=== PATIENT | female | born 1970 | race Caucasian/White ===

== ENCOUNTER 2018-09-23 16:57 | Emergency (ER) | payer OTHER ==
[~2018-09-23] VITALS: Ht 182.9 cm; Wt 174.6 kg
[~2018-09-23 16:57] MED LIST: APAP500 PO; ASPIRIN EC81 M1 PO; ASPIRIN325 PO; BUPROPION XL150 MG PO; CELEBREX 200 M200 MG PO; CLARITIN10 M2 PO; COMPOUND; NAPROSYN500 MG; NORCO 7.5-3251 EACH PO; XARELTO10 M1 PO
[2018-09-23] MEDS ORDERED: ENOXAPARIN120 MG/0.1 SUBQ (17:09)
[2018-09-23] MEDS ORDERED: ZYRTEC10 M4 PO (17:09)
[2018-09-23] MEDS ORDERED: ZESTORETIC 20-1 EAC2 PO (17:09)
[2018-09-23] MEDS ORDERED: CYMBALTA20 MG PO (17:09)
[2018-09-23] MEDS ORDERED: COUMADIN 5 MG TA5 M1 PO (17:10)
[2018-09-23] MEDS ORDERED: VENTOLIN HFA 1818 GM INH (17:11)
[2018-09-23] MEDS ORDERED: IMITREX 25 MG T25 M1 PO (17:11)
[2018-09-23 17:55] LABS: HEMATOCRIT 43.3 % (37.0-47.0); HEMOGLOBIN 14.3 gm/dL (12.0-15.0); MCH 29.1 pg (26.0-34.0); MCHC 33.1 g/dL (28.0-37.0); MCV 88.1 fL (80.0-100.0); MPV 8.6 fl. (7.2-11.1); NUCLEATED RBCS 0 /100WBC; PLATELET COUNT* 234 thou/uL (150-400); RBC 4.92 mil/uL (4.20-5.00); RDW-CV 14.9 % (10.5-14.5); WBC 9.4 thou/uL (4.0-11.0)
[2018-09-23 18:00] LABS: URINE BILIRUBIN NEGATIVE (Negative); URINE BLOOD NEGATIVE (Negative); URINE CLARITY CLEAR; URINE COLOR YELLOW; URINE GLUCOSE-RANDOM NEGATIVE (Negative); URINE KETONES NEGATIVE (Negative); URINE LEUKOCYTES-REFLEX NEGATIVE (Negative); URINE NITRITE-REFLEX NEGATIVE (Negative); URINE PROTEIN NEGATIVE (Negative); URINE UROBILINOGEN 0.2 E.U./dl (0.2-1.0)
[2018-09-23 18:03] LABS: ANION GAP 7 mmol/L (7-16); BUN 19 mg/dL (7-18); CALCIUM 8.5 mg/dL (8.5-10.1); CHLORIDE 101 mmol/L (98-107); CO2 28 mmol/L (21-32); CREATININE 0.9 mg/dL (0.6-1.3); GLUCOSE 111 mg/dL (70-99); INR 2.2; POTASSIUM 3.7 mmol/L (3.5-5.1); PROTIME 22.3 Seconds (9.20-11.50); SODIUM 136 mmol/L (136-145)
[2018-09-23 18:10] LABS: ALKALINE PHOSPHATASE 101 U/L (46-116); SGOT 46 U/L (15-37); SGPT 74 U/L (30-65); TOTAL BILIRUBIN 0.2 mg/dL (<0.1-1.0); TOTAL PROTEIN 6.8 g/dL (6.4-8.2); TROPONIN-I LEVEL <0.06 ng/mL (<0.06)
[2018-09-23 18:22] LABS: ABSOLUTE EOSINOPHILS 0.1 thou/uL (0.0-0.7); ABSOLUTE LYMPHOCYTES 1.3 thou/uL (0.8-5.3); ABSOLUTE MONOCYTES 0.5 thou/uL (0.0-1.2); ABSOLUTE NEUTROPHILS 7.5 thou/uL (1.6-8.1); ATYPICAL LYMPHS 2 %
[2018-09-23 18:23] LABS: LARGE PLATELETS RARE; PLATELET ESTIMATE ADEQUATE
[2018-09-23 18:25] LABS: ANISOCYTOSIS Occasional
[2018-09-23 18:48] VITALS: BP 135/75
--- NOTE | 2018-09-25 12:32 | EKG ---
[place] [address] ELECTROCARDIOGRAM REPORT Name: MIGDALIA HAMLIN Matilde Room: [facility]#: [id number] Admission: 09/23/18 Attend Phys: Discharge: 09/23/18 Date of : 74 Report #: [id number] THIS REPORT FOR: //name// [facility] ED Test Date: 2018-09-23 Test Time: 17:31:46 Pat Name: MIGDALIA HAMLIN Department: Room: Gender: F Foreclosure Home Inspector: Cherry MERCER : 1970 Requested By: Shwetha Mcclure Order Number: [id number] MD: Farhat Dodd Measurements Intervals [place] Rate: 68 P: 72 HI: 158 QRS: 44 QRSD: 90 T: 39 QT: 410 QTc: 437 Interpretive Statements Sinus rhythm Compared to ECG 10/11/2013 10:15:48 No significant changes Electronically Signed On 09-25-2018 12:32:19 SUPERVISOR [employer]UCK INSTALLATION by Farhat Dodd [email or web address] <ELECTRONICALLY SIGNED> By: Farhat Dodd MD, [facility] 09/25/18 1232 30 30 Farhat Dodd MD, FACC /EPI
== END 2018-09-23 18:49 | disposition home or self-care (01) ==
LOC: M.ERS 16:57
PROVIDERS: Nurse Practitioner Family
DX: R42 Dizziness and giddiness (principal); R55 Syncope and collapse; M25.561 Pain in right knee; F17.210 Nicotine dependence, cigarettes, uncomplicated; Z88.1 Allergy status to other antibiotic agents; Z88.6 Allergy status to analgesic agent; Z88.8 Allergy status to other drugs, medicaments and biological substances; Z90.710 Acquired absence of both cervix and uterus; Z90.49 Acquired absence of other specified parts of digestive tract

== ENCOUNTER → 2018-10-22 | Day surgery (SDC) | payer OTHER ==
[~2018-10-22] MED LIST changes: +COUMADIN 5 MG TA5 M1 PO; +CYMBALTA20 MG PO; +ENOXAPARIN120 MG/0.1 SUBQ; +IMITREX 25 MG T25 M1 PO; +NORCO 5-325 TA1 EACH PO; +VENTOLIN HFA 1818 GM INH; +ZESTORETIC 20-1 EAC2 PO; +ZYRTEC10 M4 PO
[2018-10-22 11:47] LABS: HEMATOCRIT 43.8 % (37.0-47.0); HEMOGLOBIN 14.7 gm/dL (12.0-15.0); MCH 29.5 pg (26.0-34.0); MCHC 33.6 g/dL (28.0-37.0); MCV 87.9 fL (80.0-100.0); MPV 8.4 fl. (7.2-11.1); RBC 4.99 mil/uL (4.20-5.00); RDW-CV 14.5 % (10.5-14.5); WBC 6.1 thou/uL (4.0-11.0)
[2018-10-22 12:00] LABS: INR 1.1; PROTIME 11.7 Seconds (9.20-11.50)
[2018-10-22 12:04] LABS: CALCIUM 8.7 mg/dL (8.5-10.1); CREATININE 0.9 mg/dL (0.6-1.3); POTASSIUM 3.3 mmol/L (3.5-5.1)
[2018-10-22 12:08] LABS: ALBUMIN 2.9 g/dL (3.4-5.0); TOTAL BILIRUBIN 0.6 mg/dL (<0.1-1.0); TOTAL PROTEIN 6.8 g/dL (6.4-8.2)
--- NOTE | 2018-10-29 23:20 | OP ---
[address] [address] OPERATIVE REPORT Name: YAKELINMIGDAILA M Room: [facility]#: [id number] Admission: 10/22/18 Attend Phys: Alfred Marcum II Discharge: Date of : 74 Report #: [id number] THIS REPORT FOR: //name// CC: Sherwin Mracum DATE OF SERVICE: 10/22/2018 PREOPERATIVE DIAGNOSIS: Right knee medial meniscus tear. POSTOPERATIVE DIAGNOSES: 1. Right knee medial meniscus tear. 2. Grade 3 chondromalacia, patellofemoral groove. 3. Grade 3 chondromalacia, medial femoral condyle. 4. Loose body measuring 9 mm in the joint. PROCEDURE PERFORMED: 1. Right knee arthroscopic surgery with partial medial meniscectomy. 2. Abrasion chondroplasty of the patellofemoral groove down to bleeding bone. 3. Abrasion chondroplasty, medial femoral condyle down to bleeding bone. 4. Excision loose body 9 mm from lateral portal. SURGEON: Alfred Marcum II, PROGRESS CLERK: ELVI Gee ANESTHESIA: Per operative record. ESTIMATED BLOOD LOSS: Minimal. ANTIBIOTICS: Per operative record. DRAINS: None. COMPLICATIONS: None. CONDITION: Stable to recovery room. DESCRIPTION OF PROCEDURE: The patient was taken to the operative suite and placed supine on the operating table and given appropriate anesthesia. The patient's back and lower extremity was sterilely prepped and draped in a well-padded knee arthroscopic conti. Surgery began by medial and lateral portal incisions. The arthroscope was advanced in the joint. There was shown to be a posterior horn meniscus tear, which was debrided back to a stable margin utilizing baskets and shaver. There was found to be grade 3 chondromalacia of the patellofemoral groove with loose fibrillated cartilage[place] [address] OPERATIVE REPORT Name: MIGDALIA HAMLIN Room: [facility]#: [id number] Admission: 10/22/18 Attend Phys: Alfred Marcum II Discharge: Date of : 74 Report #: [id number] and abrasion, chondroplasty was performed down the bleeding bone along the patellofemoral groove to remove excess cartilage and then smoothed utilizing Coblation wand in appropriate fashion. ____ medial femoral condyle also showed grade 3 chondromalacia with loose cartilage. This was debrided by utilizing shaver down to bleeding bone and then smoothed with a Coblation wand in appropriate fashion. ACL and PCL were probed and found to be intact. There was approximately 9 mm loose body, which was found in the recess of the meniscus. Utilizing an anterolateral portal, this was grasped utilizing a grasper and removed through this portal. Irrigation was then formed. The knee was drained of arthroscopic fluid, closed with 4-0 nylon in simple fashion. Dermabond and sterile dressing applied. The patient transported to recovery in stable condition. Counts were correct throughout the procedure. <ELECTRONICALLY SIGNED> By: Alfred Marcum II, 10/29/18 2320 0822 1045Alfred Marcum II, DO /nt
== END | disposition home or self-care (01) ==
LOC: M.SUR 09:35
PROVIDERS: Orthopaedic Surgery
DX: S83.241A Other tear of medial meniscus, current injury, right knee, initial encounter (principal); M94.261 Chondromalacia, right knee; Z79.01 Long term (current) use of anticoagulants; Z79.899 Other long term (current) drug therapy; Z79.891 Long term (current) use of opiate analgesic; X58.XXXA Exposure to other specified factors, initial encounter; Y93.89 Activity, other specified; Y92.89 Other specified places as the place of occurrence of the external cause; Y99.8 Other external cause status

== ENCOUNTER 2019-08-02 16:35 | Emergency (ER) | payer OTHER ==
[~2019-08-02] VITALS: Ht 182.9 cm; Wt 170.1 kg
[2019-08-02] MEDS ORDERED: CELEBREX 200 M200 M1 PO (16:51)
[2019-08-02 19:12] LABS: CALCIUM 8.5 mg/dL (8.5-10.1); CREATININE 0.9 mg/dL (0.6-1.3); POTASSIUM 3.5 mmol/L (3.5-5.1)
[2019-08-02 19:12] LABS: ABSOLUTE BASOPHILS 0.2 thou/uL (0.0-0.2); ABSOLUTE EOSINOPHILS 0.3 thou/uL (0.0-0.7); ABSOLUTE LYMPHOCYTES 2.2 thou/uL (0.8-5.3); ABSOLUTE MONOCYTES 0.6 thou/uL (0.0-1.2); ABSOLUTE NEUTROPHILS 8.4 thou/uL (1.6-8.1); BASOPHILS 1.7 %; EOSINOPHILS 2.4 %; HEMATOCRIT 42.5 % (37.0-47.0); HEMOGLOBIN 14.3 gm/dL (12.0-15.0); LYMPHOCYTES 18.8 %; MCH 28.8 pg (26.0-34.0); MCHC 33.6 g/dL (28.0-37.0); MCV 85.8 fL (80.0-100.0); MONOCYTES 5.4 %; MPV 8.5 fl. (7.2-11.1); NUCLEATED RBCS 0 /100WBC; PLATELET COUNT* 238 thou/uL (150-400); POLYS 71.7 %; RBC 4.95 mil/uL (4.20-5.00); RDW-CV 15.1 % (10.5-14.5); WBC 11.7 thou/uL (4.0-11.0)
[2019-08-02 19:17] LABS: ALBUMIN 3.1 g/dL (3.4-5.0); TOTAL BILIRUBIN 0.3 mg/dL (<0.1-1.0); TOTAL PROTEIN 7.2 g/dL (6.4-8.2)
[2019-08-02 21:58] VITALS: BP 134/69
== END 2019-08-02 21:59 | disposition home or self-care (01) ==
LOC: M.ERS 16:35
PROVIDERS: Nurse Practitioner Family
DX: R19.7 Diarrhea, unspecified (principal); Z90.710 Acquired absence of both cervix and uterus; Z90.89 Acquired absence of other organs; Z90.49 Acquired absence of other specified parts of digestive tract; G47.30 Sleep apnea, unspecified; Z98.890 Other specified postprocedural states; Z96.652 Presence of left artificial knee joint; Z91.048 Other nonmedicinal substance allergy status; Z88.1 Allergy status to other antibiotic agents; Z88.5 Allergy status to narcotic agent

== ENCOUNTER 2020-11-07 01:44 | Emergency (ER) | payer OTHER ==
[~2020-11-07] VITALS: Ht 182.9 cm; Wt 178.8 kg
[~2020-11-07 01:44] MED LIST changes: +CELEBREX 200 M200 M1 PO
[2020-11-07] MEDS ORDERED: HYDROCHLOROTHIA25 M1 PO (02:10)
[2020-11-07] MEDS ORDERED: PRISTIQ50 M1 PO (02:11)
[2020-11-07 03:22] VITALS: BP 138/53
[2020-11-07 03:27] LABS: URINE BILIRUBIN NEGATIVE (Negative); URINE BLOOD 1+ (Negative); URINE CLARITY CLEAR; URINE COLOR YELLOW; URINE GLUCOSE-RANDOM NEGATIVE (Negative); URINE KETONES NEGATIVE (Negative); URINE LEUKOCYTES-REFLEX NEGATIVE (Negative); URINE NITRITE-REFLEX NEGATIVE (Negative); URINE PROTEIN TRACE (Negative); URINE SPECIFIC GRAVITY >= 1.030 (1.005-1.030); URINE UROBILINOGEN 0.2 E.U./dl (0.2-1.0)
[2020-11-07 04:12] LABS: CASTS None Seen /LPF (None Seen); SQUAMOUS 4-10 Moderate /LPF (0-3); URINE RBC 0-2 Rare /HPF (0-2); URINE WBC-REFLEX None Seen /HPF (0-5)
[2020-11-07 04:13] LABS: AMORPHOUS URATES Many /LPF (None Seen)
== END 2020-11-07 03:23 | disposition left against medical advice (07) ==
LOC: M.ERS 01:44
PROVIDERS: Personal Emergency Response Attendant
DX: M79.661 Pain in right lower leg (principal); M79.662 Pain in left lower leg; I10 Essential (primary) hypertension; Z90.49 Acquired absence of other specified parts of digestive tract; Z90.710 Acquired absence of both cervix and uterus; Z79.01 Long term (current) use of anticoagulants; Z79.899 Other long term (current) drug therapy; Z88.5 Allergy status to narcotic agent; Z88.1 Allergy status to other antibiotic agents; Z91.048 Other nonmedicinal substance allergy status

== ENCOUNTER → 2021-01-09 | Outpatient (CLI) | payer OTHER ==
[~2021-01-09] MED LIST changes: +ENOXAPARIN60 MG/0.6 SUBQ; +FAMOTIDINE 10 M10 MG PO; +HYDROCHLOROTHIA25 M1 PO; +JANTOVEN5 MG PO; +JANTOVEN7.5 MG PO; +LOVENOX SUBQ; +PRISTIQ100 MG PO; +PRISTIQ50 M1 PO; +ZOLOFT25 MG PO
[2021-01-09 10:56] LABS: HEMATOCRIT 43.5 % (37.0-47.0); MCH 28.5 pg (26.0-34.0); MCHC 32.2 g/dL (28.0-37.0); MCV 88.5 fL (80.0-100.0); MPV 8.1 fl. (7.2-11.1); NUCLEATED RBCS 0 /100WBC; PLATELET COUNT* 273 thou/uL (150-400); RBC 4.92 mil/uL (4.20-5.00); RDW-CV 15.2 % (10.5-14.5); WBC 11.9 thou/uL (4.0-11.0)
[2021-01-09 11:02] LABS: APTT 25.1 Seconds (25.0-31.3); INR 1.1; PROTIME 11.2 Seconds (9.20-11.50)
[2021-01-09 11:06] LABS: ALBUMIN 2.8 g/dL (3.4-5.0); CALCIUM 8.6 mg/dL (8.5-10.1); CREATININE 0.8 mg/dL (0.6-1.3); POTASSIUM 3.6 mmol/L (3.5-5.1); TOTAL BILIRUBIN 0.5 mg/dL (<0.1-1.0); TOTAL PROTEIN 6.9 g/dL (6.4-8.2)
[2021-01-09 11:35] LABS: ABSOLUTE EOSINOPHILS 0.2 thou/uL (0.0-0.7); ABSOLUTE LYMPHOCYTES 1.3 thou/uL (0.8-5.3); ABSOLUTE MONOCYTES 0.8 thou/uL (0.0-1.2); ABSOLUTE NEUTROPHILS 9.5 thou/uL (1.6-8.1)
[2021-01-09 11:36] LABS: ANISOCYTOSIS 1+; PLATELET ESTIMATE ADEQUATE; POIKILOCYTOSIS 1+
--- NOTE | 2021-01-09 17:49 | EKG ---
[place] [address] ELECTROCARDIOGRAM REPORT Name: YAKELINMIGDALIA Matilde Room: [facility]#: [id number] Admission: 01/09/21 Attend Phys: Irving Field Discharge: Date of : 74 Date of Service: 01/09/21 1057 Report #: [id number] THIS REPORT FOR: //name// [facility] Test Date: 2021-01-09 Test Time: 10:57:28 Pat Name: MIGDALIA HAMLIN Department: Room: Gender: Statement Request Clerk: : 1970 Requested By: Irving Field Order Number: [id number] Reading MD: Irving Westfall Measurements Intervals [place] Rate: 68 P: 73 NC: 142 QRS: 68 QRSD: 89 T: 54 QT: 398 QTc: 424 Interpretive Statements Sinus rhythm Compared to ECG 09/23/2018 17:31:46 No significant changes Electronically Signed On 01-09-2021 17:49:46 DIE MAKER BENCH STAMPING by Irving Westfall [email or web address] <ELECTRONICALLY SIGNED> By: Irving Westfall MD, [facility] 01/09/21 1749 1057 105 Irving Westfall MD, FAC /EPI
[2021-01-10 02:06] LABS: GLYCOHEMOGLOBIN (HGB A1C) 6.2 % (4.8-5.6)
== END ==
LOC: M.LAB 10:22
PROVIDERS: ATTEND Orthopaedic Surgery
DX: Z01.812 Encounter for preprocedural laboratory examination (principal); Z20.822 Contact with and (suspected) exposure to COVID-19; M17.11 Unilateral primary osteoarthritis, right knee; I49.9 Cardiac arrhythmia, unspecified

== ENCOUNTER 2021-01-19 07:54 | Inpatient (IN) | payer OTHER ==
[~2021-01-19] VITALS: Ht 182.9 cm; Wt 174.2 kg
--- NOTE | ~2021-01-19 | OP ---
[address] [address] OPERATIVE REPORT Name: MIGDALIA HAMLIN Room: [address] IN .R.#: [id number] Admission: 01/19/21 Attend Phys: Akilah Morrissey Discharge: Date of : 74 Report #: [id number] THIS REPORT FOR: cc: Sherwin Dalal Chad W. DO ~ Irving Field DO DICTATED BY: Jose Seymour DO DATE OF SERVICE: 01/19/2021 PREOPERATIVE DIAGNOSIS: Right knee end-stage degenerative joint disease. POSTOPERATIVE DIAGNOSIS: Right knee end-stage degenerative joint disease. PROCEDURE PERFORMED: Right total knee arthroplasty. SURGEON: Irving Field DO STONE CUTTER: Jose Seymour DO ANESTHESIA: 1. Spinal with sedation. 2. A preoperative adductor canal block. 3. An intraoperative intracapsular local block. TOURNIQUET TIME: 300 mmHg at 37 minutes. ESTIMATED BLOOD LOSS: 450 mL. COMPLICATIONS: None. CONDITION OF PATIENT: Stable to PACU. INTRAOPERATIVE FINDINGS: Dissection down into the subcutaneous tissues revealed no abnormalities. The tissue planes were appropriate and healthy given the patient's age and comorbidities. Capsulotomy revealed medium joint effusion with straw colored joint fluid without any signs of purulence. Bone inspection revealed normal bone hardness with gross eburnation and osteophytic lipping tricompartmentally. IMPLANTS: 1. Richard Persona cruciate retained, size-8 femur. 2. Richard Persona natural tibia, size-S. 3. Richard Persona, size 32 mm round patellar button. 4. Richard Persona vitamin E highly cross-linked size-[place] [address] OPERATIVE REPORT Name: MIGDALIA HAMLIN Room: [address] IN [facility].#: [id number] Admission: 01/19/21 Attend Phys: Akilah Morrissey Discharge: Date of : 74 Report #: [id number] INDICATIONS FOR PROCEDURE: The patient is a pleasant 50-year-old female who has been dealing with longstanding right knee pain. In the early part of December of this year, she unfortunately stepped out of a bus wrong without significant increase in her baseline knee pain. MRI and radiographic evaluation of the knee showed extensive degenerative changes tricompartmentally with [id number]-ed-glvm wear patterns. The patient had already tried conservative measures including a history of multiple arthroscopies of the knee, weight loss, activity modification, corticosteroid therapy, although failed to provide any significant relief to her knee pain. She was recommended to proceed forward with a right total knee arthroplasty. We discussed the alternatives, benefits and risks including but not limited to damage to neurovascular structures, continuation of pain, possible need for repeat surgery, future intraoperative or postoperative fracture, failure of implants, postoperative DVT, pulmonary embolism, IL and any other imponderables secondary to being taken back to the operative suite. The patient expressed understanding of the aforementioned and did wish to proceed. DESCRIPTION OF PROCEDURE: The patient was met in the preoperative area. The correct site was marked. She was taken back to the operative suite, given the benefit of spinal anesthetic, placed supine on a well-padded operative table. All bony prominences were padded. The patient was well secured. A well-padded pneumatic tourniquet was applied to the right proximal thigh. This was ultimately inflated for 37 minutes. Right lower extremity was then sterilely prepped and draped in normal standard fashion. The right lower extremity was secured into the [facility] leg conti. Surgeon-led timeout with the correct patient, side, site, procedure to be performed. Antibiotics in the form of 3 grams of Ancef being administered was agreed upon by all in participation. Right lower extremity was held in that elevated position to allow for gravity exsanguination followed by flexing at the knee and inflating the tourniquet to 300 mmHg. Standard midline incision through the skin and subcutaneous tissue were taken down. Electrocautery was used to establish hemostasis. A new knife was used to make a medial parapatellar arthrotomy. The medial and lateral subperiosteal sleeves were developed followed by releasing of the fat pad with adhesions to the undersurface of the patella. Patella was everted and brought in a semi-flexed position. The undersurface of the patella and patellar tendon was examined. The fat pad was excised as well as the anterior horn of the lateral meniscus. Knee was flexed up the remainder of the way. The medial and lateral Hohmann retractors were put in place. Femoral drill was used to establish our intramedullary canal guide for the intramedullary brad. Intramedullary brad was inserted and pinned into place. A distal femoral cut was made. With instruments removed, A-P femoral sizer was put in place and sized to be size-9. This was pinned into place. Anterior femoral cut was made. It was felt to be able to downsize safely. Size-9 was exchanged through size-8 in 4-in-1 cutting block. Size-8 anterior femoral cut was flushed with the anterior cortex of the femur. The posterior femoral cut, [place] [address] OPERATIVE REPORT Name: MIGDALIA HAMLIN Room: [address] [place] [facility]#: [id number] Admission: 01/19/21 Attend Phys: Akilah Morrissey Discharge: Date of : 74 Report #: [id number] chamfer cuts were then made. A 4-in-1 cutting block to the bony cuts were removed. Rongeur was used to clean off the bone and osteophytes about the distal femur. Extramedullary tibial guide was put into place measured to off the low side at the tibia which is the medial compartment. This was dropped an extra 2 mm and pinned. Tibial cut was made. Knee was brought into extension, felt to be too tight to allow a #10 spacer block to be inserted. The tibial cut guide was then placed back into place, dropped an extra 2 for a total of 4 mm off of our initial measurement. This was made without issue. The knee was brought into extension and the #10 spacer block fit well. There was symmetric balancing to varus and valgus stress at both the extended and flexed position. Knee was brought into a flexed position. The tibial sizer was pinned into place followed by a trial femur. All components were felt to be seated and measured appropriately. The size-10 polyethylene trial was inserted. The knee was brought into full extension and appropriate gap balancing the knee flexed and extended position. Knee was on a semi-extended position where the patella was cut from the inferior pole superiorly, drilled. The patellar button was placed and that flushed the undersurface of the patella. All the trial instruments were removed. Cement was mixed on the back table. All bony ends were thoroughly irrigated and lavaged with pulsatile irrigation. Hohmann retractors were placed medial and lateral as well as the PCL tract on the posterior aspect of the tibia. Cement was placed down to the bone surfaces for the tibia, femur, and patella. All trials were impacted into place. A size-10 polyethylene insert was used. Decompressed the knee as it was held in extension and axially loaded while the cement was allowed to harden. The patellar clamp was left on the patella the entire time. After cement was adequately hard, size-12 stem was inserted into the polyethylene trial. This was felt to have more appropriate varus and valgus balancing, and was almost 0 anterior drawer at mid flexion and stretching. Decided to use a size-12 final polyethylene insert. This was done on the back table as noted. After the tibial tray was inspected for any residual cement or debris, Richard hand groundwater monitoring technician was used to insert final polyethylene. Knee was taken through a full range of motion and felt to have continued stability to varus and valgus stress about the extended and flexed position. No concern for residual drawer at the mid flexion position of 90 degrees. Knee was thoroughly irrigated. A capsular block was administered. A layered closure with #1 Vicryl to the capsule followed by 2-0 Vicryl for subcutaneous tissue, and a running 3-0 Stratafix was done. Skin glue was applied followed by Mepilex dressing. The patient was awoken from general anesthesia and taken to postanesthesia care unit in stable condition. All sponge and needle counts were correct x 2 prior to closure. By: [id number] Field DO /richie
[2021-01-19 08:57] LABS: INR 1.1; PROTIME 11.3 Seconds (9.20-11.50)
[2021-01-19 13:22] LABS: URINE BILIRUBIN NEGATIVE (Negative); URINE BLOOD NEGATIVE (Negative); URINE CLARITY CLEAR; URINE COLOR YELLOW; URINE GLUCOSE-RANDOM NEGATIVE (Negative); URINE KETONES NEGATIVE (Negative); URINE LEUKOCYTES-REFLEX NEGATIVE (Negative); URINE NITRITE-REFLEX NEGATIVE (Negative); URINE PROTEIN NEGATIVE (Negative); URINE SPECIFIC GRAVITY 1.015 (1.005-1.030); URINE UROBILINOGEN 0.2 E.U./dl (0.2-1.0)
[2021-01-19 15:30] VITALS: BP 100/48
[2021-01-19 15:52] VITALS: BP 120/53
--- NOTE | 2021-01-19 19:30 | NUR ---
PT BROUGHT UP TO THE FLOOR FROM SURGERY. PT HAD TO STAND UP TO MAKE HER FEEL BETTER AND TO GET THE SLING OUT FROM BEHIND HER. VSS AFEBRILE. PT EATING AND DRINKING WELL. DRESSING TO RIGHT KNEE C/D/I. WITH POLAR PAC ON. SALINE LOCK IN LEFT HAND WITH NORMAL SALINE INFUSING WITH OUT DIFFICULTY. WILL CONTINUE TO MONITOR PLAN OF CARE. VSS AFEBRILE.
[2021-01-19 20:30] VITALS: BP 149/56
[2021-01-19 22:03] VITALS: BP 149/56
[2021-01-20 00:17] VITALS: BP 131/56
[2021-01-20 04:27] LABS: HEMATOCRIT 35.7 % (37.0-47.0); HEMOGLOBIN 11.8 gm/dL (12.0-15.0)
[2021-01-20 04:36] VITALS: BP 129/72
[2021-01-20 04:38] LABS: INR 1.1; PROTIME 11.4 Seconds (9.20-11.50)
--- NOTE | 2021-01-20 06:29 | NUR ---
PATIENT RESTING IN BED. IV INFUSING NORMAL SALINE @100, DRESSING C/D/I. INCISION TO RIGHT KNEE, UNABLE TO ASSESS DUE TO DRESSING, DRESSING C/D/I. POLAR PACK TO RIGHT KNEE. HAWKINS INPLACE TO DEPENDENT DRAINAGE WITHOUT COMPLICATIONS. FOOT SCD'S INPLACE. PATIENT TO START USING CPM TODAY. OXYCODONE X3 GIVEN FOR PAIN. ALL QUESTIONS AND CONCERNS ADDRESSED.
[2021-01-20 08:30] VITALS: BP 137/57
[2021-01-20 11:45] VITALS: BP 156/62
--- NOTE | 2021-01-20 13:15 | NUR ---
PT IS S/P R TKA WBAT. PER PT EVALUATION AND DISCUSSION, NO CONCERNS WITH DC TO HOME WITH HH SERVICES. NO SKILLED ACUTE OT SERVICES NEEDED AT THIS TIME.
--- NOTE | 2021-01-20 14:27 | NUR ---
CM SPOKE TO THE PT TO COMPLETE CM ASSESSMENT. PT A&O. NORMALLY INDEPENDENT WITH ADL'S, AND WORKS OUTSIDE THE HOME. PT RESIDES AT HOME ALONE, BUT INFORMS THAT HER MOTHER WILL "STAY WITH ME FOR A WHILE' TO ASSIST AT D/C. PT USES A CPAP AT [facility]. PT INFORMS THAT A CPM HAS ALREADY BEEN DELIVERED TO HER HOME TO USE AT D/C. PT HAS PAST HX OF HH, BUT COULD NOT RECALL THE NAME. PT HAS O HX OF SNF. PT INFORMS THAT SHE HAS 17 STEPS TO ONE ENRTY OF HER HOME AND 23 STEPS TO THE OTHER ENTRY OF HER HOME. CM INFORMED PT THAT THIS MAY BE A BARRIER TO D/C, AND THAT SHE MAY NEED TO CONSIDER STAYING WITH HER MOM IN THE EVENT THAT SHE IS UNABLE TO NAVIGATE THAT MANY STEPS. CM INFORMED P.T. OF THIS WELL. CM WILL REMAIN AVAILABLE TO ASSIST AND FOLLOW NEEDED.
[2021-01-20 15:30] VITALS: BP 139/52
--- NOTE | 2021-01-20 17:12 | NUR ---
PATIENT ALERT AND ORIENTED X 4. VITAL SIGNS STABLE ON ROOM AIR. IV PATENT WITH FLUIDS INFUSING PER MAR. HAWKINS PATENT AND DRAINING CLEAR, YELLOW URINE. PAIN BEING MANAGED WITH PO AND IV MEDICATION. DENIES NAUSEA AT THIS TIME. POLAR CARE IN PLACE AND DRESSING TO RIGHT KNEE CLEAN, DRY, AND INTACT. FALL PRECAUTIONS IN PLACE AND BED ALARM ON. HOURLY ROUNDS MAINTAINED THROUGHOUT THE SHIFT. CALL LIGHT WIHTIN REACH.
[2021-01-20 20:00] VITALS: BP 130/47
[2021-01-21 04:07] LABS: HEMATOCRIT 33.4 % (37.0-47.0); HEMOGLOBIN 10.7 gm/dL (12.0-15.0)
[2021-01-21 04:17] LABS: INR 1.6; PROTIME 16.5 Seconds (9.20-11.50)
--- NOTE | 2021-01-21 06:51 | NUR ---
PATIENT SLEPT PART OF THE NIGHT. IV FLUIDS CONTINUE TO INFUSE ORDERED. PATIENT WAS GIVEN PAIN MEDICINE ABOUT EVERY THREE HOURS. PATIENT WAS STILL COMPLAINING OF PAIN WHEN ORTHO RESIDENT ROUNDED THIS MORNING HE ORDERED TORADOL 30 MG X 1 DOSE. WILL CONTINUE TO MONITOR.
[2021-01-21] MEDS ORDERED: PERCOCET 5-3251 EACH PO (08:19)
[2021-01-21 12:14] VITALS: BP 143/81
[2021-01-21 16:00] VITALS: BP 123/36
--- NOTE | 2021-01-21 19:20 | NUR ---
PT A&OX4 VSS. PT UP TO RECLINER WITH THERAPY. PT UP TO RESTROOM WITH ASSIST AND WALKER. PRN PAIN MEDS ADMINISTERED REQUESTED. PT ACCUCHECK, NO SLIDING SCALE INSULIN INDICATED THIS SHIFT. PT REMAINS ON ROOM AIR DURING THE DAY. CPAP HS. FOOT PUMPS TO BILAT FEET. POLAR ICE TO R KNEE. LIDOCAINE PATCH PLACED ABOVE AND BELOW R KNEE AT PT REQUEST. PT RESTS IN BED WITH CALL LIGHT IN REACH.
[2021-01-21 21:30] VITALS: BP 144/61
[2021-01-22 04:49] LABS: INR 1.9; PROTIME 19.1 Seconds (9.20-11.50)
--- NOTE | 2021-01-22 05:56 | NUR ---
PATIENT SLEPT MOST OF THE NIGHT. IV REMAINS SALINE LOCKED. PATIENT WAS GIVEN PAIN MEDICINE ABOUT EVERY THREE HOURS FOR PAIN AND ITCHING MEDICINE TWICE. PATIENT COULD POSSIBLE DISCHARGE TODAY IF REHAB FACILTY IS FOUND. WILL CONTINUE TO MONITOR.
[2021-01-22 08:05] VITALS: BP 125/45
--- NOTE | 2021-01-22 14:00 | NUR ---
SPOKE WITH PT.AND MOTHER IN ROOM. DISCUSSED ACUTE REHAB CONSULT. SHE WOULD REALLY LIKE TO GO TO OUR ARU. EXPLAINED NEED TO DO 3 HRS/THERAPY PER DAY,CANNOT DECLINE THERAPY. EXPLAINED HER INSURANCE WOULD NEED TO AUTHROIZE HER TO GO TO ARU. IF THEY DECLINE TO AUTH REHAB, SHE WOULD EITHER NEED TO GO TO SNF OR HOME WITH MOTHER, WHO HAS NOT STAIRS. SHE SAID SHE UNDERSTOOD.
[2021-01-22 16:17] VITALS: BP 117/40
--- NOTE | 2021-01-22 19:57 | NUR ---
Pt remained A&O x4 for entire shift. Vital signs stable. Pt pleasant with staff. Pt seems to have some general anxiety about everything. Pt was agreeable to using CPM but did not want to increase the range. Pt was only on the CPM for 5-10 minutes before complaining of 10/10 pain. When this nurse entered the room, the pt's mom had taken the CPM off of the pt. The Pt complained that her leg was cramping from calf all the way up her leg. Orders received for a muscle relaxer and given to pt. Pt has not complained of cramping since. Pt was up to chair for a few hours today. Dressing is clean, dry and intact with polar pack and foot SCDs in place. Bed in low position, bed/chair alarm on, call light within reach.
[2021-01-22 20:00] VITALS: BP 143/52
[2021-01-23 04:57] LABS: INR 1.9; PROTIME 19.4 Seconds (9.20-11.50)
[2021-01-23 05:05] LABS: CALCIUM 8.6 mg/dL (8.5-10.1); CREATININE 0.8 mg/dL (0.6-1.3); HEMATOCRIT 31.3 % (37.0-47.0); HEMOGLOBIN 10.2 gm/dL (12.0-15.0); MCH 28.7 pg (26.0-34.0); MCHC 32.6 g/dL (28.0-37.0); MPV 8.7 fl. (7.2-11.1); POTASSIUM 3.1 mmol/L (3.5-5.1); RBC 3.55 mil/uL (4.20-5.00); RDW-CV 14.6 % (10.5-14.5); WBC 11.5 thou/uL (4.0-11.0)
[2021-01-23 16:34] VITALS: BP 108/48
--- NOTE | 2021-01-23 19:49 | NUR ---
SPOKE WITH BERTHA/LINDSAY ROBERT. SHE SAID SHE WILL SUBMIT AUTH FOR REHAB TO INSURANCE THIS AFTRNOON. PT.PARTICIPATED WITH OT/PT.BETTER TODAY. CM WILL CONTINUE OT FOLLOW
[2021-01-23 20:00] VITALS: BP 146/52
[2021-01-24 04:29] LABS: INR 2.2; PROTIME 22.4 Seconds (9.20-11.50)
--- NOTE | 2021-01-24 05:10 | NUR ---
PATIENT SLEPT WELL DURING THIS SHIFT. PT USED CPM AT APPROX 2200 AND ABLE TO TOLERATE FOR APPROX ONE HOUR. PT REQUESTED PAIN MEDICATION X1 AND ALSO HAD A FLEXERIL. PT ABLE TO REPOSITION HERSELF IN BED. FREQUENTLY USED ITEMS AND CALL LIGHT WITHIN REACH. SIDERAILS UPX2 AND BED ALARM ON. WILL CONTINUE TO MONITOR.
[2021-01-24 08:00] VITALS: BP 139/55
[2021-01-24 08:22] VITALS: BP 139/55
--- NOTE | 2021-01-24 09:30 | NUR ---
PT.JUST FINISHED OT. INFORMED PT. THAT HER INSURANCE HAD AUTHORIZED HER TO GO TO [facility]. TOLD HER IT WOULD MOST LIKELY BE THIS AFTERNOON. SHE WAS AGREEABLE.
--- NOTE | 2021-01-24 15:31 | NUR ---
PT DISCHARGED TO THE REHAB UNIT HER AT [facility]. REPORT CALLED TO KENNY. SALINE LOCK REMOVED HUB INTACT. PT DISCHARGED WITH ALL BELONGINGS AND WITH THE CPM .
== END 2021-01-24 15:10 | DRG 470 ==
LOC: M.TBA 07:54 → M.SUR 10:02 → EDSTATUS 10:25 → M.PRE 10:31 → M.TBA 12:38 → M.ORTHSURG 14:32
PROVIDERS: Family Medicine; Internal Medicine; Orthopaedic Surgery; ADMIT Internal Medicine; ATTEND Internal Medicine
PROC: 0SRC0J9 Replacement of Right Knee Joint with Synthetic Substitute, Cemented, Open Approach (ICD-10-PCS; principal; 2021-01-19)
DX: M17.11 Unilateral primary osteoarthritis, right knee (principal); D68.69 Other thrombophilia; Z68.43 Body mass index [BMI] 50.0-59.9, adult; F17.210 Nicotine dependence, cigarettes, uncomplicated; E89.0 Postprocedural hypothyroidism; E66.01 Morbid (severe) obesity due to excess calories; Z88.6 Allergy status to analgesic agent; Z88.1 Allergy status to other antibiotic agents; Z90.710 Acquired absence of both cervix and uterus; Z90.49 Acquired absence of other specified parts of digestive tract; Z79.01 Long term (current) use of anticoagulants; Z79.899 Other long term (current) drug therapy

== ENCOUNTER 2021-01-24 14:52 | Inpatient (IN) | payer OTHER ==
[~2021-01-24] VITALS: Ht 182.9 cm; Wt 179.2 kg
[~2021-01-24 14:52] MED LIST changes: +PERCOCET 5-3251 EACH PO
[2021-01-24 19:50] VITALS: BP 153/44
[2021-01-25 04:22] LABS: ABSOLUTE BASOPHILS 0.1 thou/uL (0.0-0.2); ABSOLUTE EOSINOPHILS 0.2 thou/uL (0.0-0.7); ABSOLUTE LYMPHOCYTES 1.7 thou/uL (0.8-5.3); ABSOLUTE MONOCYTES 0.8 thou/uL (0.0-1.2); ABSOLUTE NEUTROPHILS 7.6 thou/uL (1.6-8.1); EOSINOPHILS 2.3 %; HEMATOCRIT 29.6 % (37.0-47.0); HEMOGLOBIN 9.5 gm/dL (12.0-15.0); LYMPHOCYTES 16.6 %; MCH 28.8 pg (26.0-34.0); MCHC 32.2 g/dL (28.0-37.0); MCV 89.5 fL (80.0-100.0); MONOCYTES 7.5 %; NUCLEATED RBCS 0 /100WBC; PLATELET COUNT* 252 thou/uL (150-400); POLYS 72.6 %; RBC 3.31 mil/uL (4.20-5.00); RDW-CV 14.7 % (10.5-14.5); WBC 10.5 thou/uL (4.0-11.0)
[2021-01-25 04:33] LABS: INR 2.5; PROTIME 25.6 Seconds (9.20-11.50)
[2021-01-25 04:40] LABS: CALCIUM 8.5 mg/dL (8.5-10.1); CREATININE 0.6 mg/dL (0.6-1.3); POTASSIUM 3.4 mmol/L (3.5-5.1)
[2021-01-25 07:48] VITALS: BP 138/58
--- NOTE | 2021-01-25 16:03 | EKG ---
[place] [address] ELECTROCARDIOGRAM REPORT Name: YAKELINMIGDALIA Matilde Room: [address] ADM [place] .R.#: [id number] Admission: 01/24/21 Attend Phys: Yanick Diallo MD Discharge: Date of : 74 Date of Service: 01/25/21 0957 Report #: [id number] THIS REPORT FOR: //name// [facility] Test Date: 2021-01-25 Test Time: 09:57:26 Pat Name: MIGDALIA HAMLIN Department: Room: [address] Gender: F Public Speaking Instructor: VIRA : 1970 Requested By: Yanick Diallo Order Number: [id number] Reading MD: Irving Westfall Measurements Intervals [place] Rate: 82 P: 68 MD: 135 QRS: 34 QRSD: 92 T: 32 QT: 389 QTc: 455 Interpretive Statements Sinus rhythm Baseline wander in lead(s) V1 Compared to ECG 01/09/2021 10:57:28 No significant changes Electronically Signed On 01-25-2021 16:03:27 CDT by Irving Westfall [email or web address] <ELECTRONICALLY SIGNED> By: Irving Westfall MD, FAC 01/25/21 1603 0957 0957 Irving Westfall MD, [facility] /EPI
[2021-01-25 20:00] VITALS: BP 135/42
[2021-01-26 08:16] VITALS: BP 139/44
[2021-01-26 19:30] VITALS: BP 104/43
[2021-01-27 08:28] VITALS: BP 134/35
[2021-01-27 19:00] VITALS: BP 128/34
[2021-01-28 07:50] VITALS: BP 143/61
[2021-01-28 19:57] VITALS: BP 143/57
[2021-01-29 07:53] VITALS: BP 145/45
[2021-01-29 19:00] VITALS: BP 129/54
[2021-01-30 07:20] VITALS: BP 126/40
[2021-01-30 10:10] VITALS: BP 126/40
[2021-01-30 14:10] VITALS: BP 126/40
== END 2021-01-30 14:58 | disposition home health service (06) | DRG 554 ==
LOC: M.REH 14:52
PROVIDERS: ADMIT Physical Medicine & Rehabilitation; ATTEND Physical Medicine & Rehabilitation
DX: M17.11 Unilateral primary osteoarthritis, right knee (principal); D68.59 Other primary thrombophilia; Z68.43 Body mass index [BMI] 50.0-59.9, adult; E89.0 Postprocedural hypothyroidism; Z79.01 Long term (current) use of anticoagulants; E66.01 Morbid (severe) obesity due to excess calories; I10 Essential (primary) hypertension; G47.33 Obstructive sleep apnea (adult) (pediatric); J45.909 Unspecified asthma, uncomplicated; M79.7 Fibromyalgia; Z88.1 Allergy status to other antibiotic agents; Z88.8 Allergy status to other drugs, medicaments and biological substances; M19.90 Unspecified osteoarthritis, unspecified site

== ENCOUNTER → 2021-05-16 | Outpatient (CLI) | payer OTHER ==
[2021-05-16 07:46] LABS: INR 1.1; PROTIME 11.4 Seconds (9.20-11.50)
== END ==
LOC: M.LAB 05:46
PROVIDERS: ATTEND Anesthesiology
DX: Z01.812 Encounter for preprocedural laboratory examination (principal); R79.1 Abnormal coagulation profile; Z20.822 Contact with and (suspected) exposure to COVID-19